=== PATIENT | female | born 1965 | race Caucasian/White ===

== ENCOUNTER 2022-08-03 19:08 | Emergency (ER) | payer OTHER ==
[~2022-08-03] VITALS: Ht 167.6 cm; Wt 95.0 kg
[2022-08-03 19:34] VITALS: BP 131/67
== END 2022-08-03 22:15 | disposition left against medical advice (07) ==
LOC: EMS 19:23
DX: Z53.21 Procedure and treatment not carried out due to patient leaving prior to being seen by health care provider (principal)
CPT/HCPCS: 99281; Z7502